=== PATIENT | female | born 1995 | race Caucasian/White ===

== ENCOUNTER 2021-09-24 23:13 | Emergency (ER) | payer SELFPAY ==
[2021-09-24 23:21] VITALS: BP 130/94; PULSE 76; RESP 18; TEMP 36.4; O2SAT 98
--- NOTE | 2021-09-24 23:31 | ED.GENADULT ---
HPI - General Adult General Chief complaint: Unspecified Stated complaint: Staple Removal Time Seen by Provider: 09/24/21 23:17 Source: patient and RN notes reviewed Mode of arrival: ambulatory Limitations: no limitations History of Present Illness complaint: delma of healed Caeasarean section wound for removal. Onset (ago): week(s) (8) Location: abdomen Radiation: non-radiation Severity: mild Severity scale (1-10): 1 Quality: dull Pain Consistency: constant Relieving factors: none Exacerbating factors: none Associated symptoms: denies other symptoms Treatments prior to arrival: none Related Data Home Medications Medication Instructions Recorded Confirmed No Home Medications 09/24/21 09/24/21 Allergies Allergy/AdvReac Type Severity Reaction Status Date / Time oxacillin Allergy Unknown Verified 09/24/21 23:34 mirapenum Allergy Unknown Uncoded 09/24/21 23:34 Review of Systems Review of Systems: All systems reviewed & are unremarkable except as noted in HPI and below Constitutional: Constitutional: Reports no additional constitutional complaints Eyes: Eyes: Reports no additional eye complaints ENT: Reports system reviewed and no additional complaints, except as documented Cardiovascular: Cardiovascular: Reports no additional cardiovascular complaints Respiratory: Respiratory: Reports no additional respiratory complaints Gastrointestinal: Gastrointestinal: Reports no additional gastrointestinal complaints Genitourinary: Genitourinary: Reports no additional female genitourinary complaints Musculoskeletal: Musculoskeletal: Reports no additional musculoskeletal complaints Integumentary/Breasts: Skin/Breast: Reports system reviewed and no additional complaints, except as docu Neurologic: Reports system reviewed and no additional complaints, except as documented Psychiatric: Psychiatric: Reports no additional psychiatric complaints Endocrine: Endocrine: Reports no additional endocrine complaints Hematologic/Lymphatic: Hematologic/Lymphatic: Reports no additional hematologic/lymphatic complaints Allergic/Immunologic: Allergic/Immunologic: Reports no additional allergic/immunologic complaints PMFSH Past Medical History Medical History Healing wound Exam Const: General: healthy appearing and no acute distress Nutritional Appearance: well nourished Orientation/consciousness: patient oriented x3 Limitations: no limitations HENMT: Head: normal to inspection Ears: external ears normal, TM's normal bilaterally and EAC's normal General nose exam: Normal external nose present and Normal nares present Face and sinus: normal facial exam and sinuses nontender Mouth: Yes Normal oral and palatal mucosa present and Yes moist mucous membranes Teeth and gingiva: dentition normal Throat: posterior oropharynx normal Eyes: Conjunctivae: conjunctivae normal Pupils: Equal, round and reactive pupils present EOM: EOMs intact bilaterally Neck: Neck: normal visual inspection, no lymphadenopathy and no meningeal signs Chest: Chest palpation & inspection: normal inspection of the chest Resp: Effort & Inspection: normal respiratory effort Auscultation: clear to auscultation bilaterally Cardio: Rate: regular rate Rhythm: regular rhythm GI: GI Palp: Yes Soft to palpation and No Tenderness to palpation present (GI) Auscultation: normal bowel sounds : General: Yes bladder normal to palpation and Yes no CVA tenderness Bimanual exam- vagina & uterus: bladder normal to palpation Back/Spine/Pelvis: Back: no CVA tenderness Skin: General skin exam: normal color Rashes: no rashes Wounds: no wounds Neuro: General: patient oriented x3, moves all extremities, no meningeal signs, no focal motor deficits and CN's II-XI intact bilaterally Cranial nerves: Yes Equal, round and reactive pupils present and Yes Nystagmus not present Speech: normal speech Gait
--- NOTE | 2021-09-24 23:32 | PC.NURSE ---
4 delma removed in whole condition, bandaids placed over site. no signs of infection
[2021-09-24] MEDS: ACETAMINOPHEN 325 MG TABLET 650 MG PO (23:39)
== END 2021-09-24 23:42 | disposition home or self-care (01) ==
PROVIDERS: Emergency Provider Emergency Medicine
DX: Z48.02 Encounter for removal of sutures (principal)
CPT/HCPCS: 99282; A9270

== ENCOUNTER 2021-10-07 06:11 | Emergency (ER) | payer OTHER, SELFPAY ==
--- NOTE | ~2021-10-07 | XR_ITS ---
XR sacrum coccyx min 2V DATE: 10/07/2021 07:02 INDICATION: Fall. Patient landed on tailbone. TECHNIQUE: AP, angled AP and lateral views of sacrum and coccyx COMPARISON: None FINDINGS: The pubic symphysis and sacroiliac joints are intact. No sacral or coccygeal fracture or john ne destruction is noted. Hip joint spaces appear symmetric and preserved. IMPRESSION: Negative Reviewed, dictated and finalized at location A. IMPRESSION: Negative
[2021-10-07 06:28] VITALS: BP 116/73; PULSE 64; RESP 18; TEMP 36.2; O2SAT 95
--- NOTE | 2021-10-07 06:36 | ED.FALL ---
HPI - Fall General Chief Complaint: Fall Stated Complaint: LOWER BACK/ L LEG PAIN Time Seen by Provider: 10/07/21 06:32 History of Present Illness HPI Narrative: 26-year-old female patient is in the ER with complaints of pain in the tailbone area after she slipped a few steps and landed on the carpet flat on her buttocks approximately 2 hours ago while she was carrying a basket of laundry. She localizes the pain to the left buttock and lower back area and states that the walking makes it worse. There is no associated numbness or tingling of the leg. And she denies any other injuries. Apparently she has had a prior history of coccygeal fracture. Patient is 4 months and has not had a period and is not sure if she might be again. She is not currently nursing her child. She is 1. Related Data Home Medications Medication Instructions Recorded Confirmed No Home Medications 09/24/21 10/07/21 Allergies Allergy/AdvReac Type Severity Reaction Status Date / Time oxacillin Allergy Unknown Verified 09/24/21 23:34 mirapenum Allergy Unknown Uncoded 09/24/21 23:34 Review of Systems Review of Systems: All systems reviewed & are unremarkable except as noted in HPI and below PMFSH Past Medical History Medical History Healing wound Exam Const: General: healthy appearing, no acute distress and alert Nutritional Appearance: well nourished and thin Orientation/consciousness: patient oriented x3 Limitations: no limitations HENMT: Head: normal to inspection Ears: external ears normal General nose exam: Normal external nose present Face and sinus: normal facial exam Eyes: Pupils: Equal, round and reactive pupils present EOM: EOMs intact bilaterally Neck: Neck: normal visual inspection Chest: Chest palpation & inspection: normal inspection of the chest Resp: Effort & Inspection: normal respiratory effort Auscultation: clear to auscultation bilaterally Cardio: Rate: regular rate Rhythm: regular rhythm GI: Auscultation: normal bowel sounds : General: Yes bladder normal to palpation Back/Spine/Pelvis: Back: no CVA tenderness Other: The curvature of the spine is normal. There is no obvious bruising or contusions noted to the back or the buttock area. Patient does have point tenderness over the sacrococcygeal area. There is no crepitus. Skin: General skin exam: normal color Rashes: no rashes Wounds: no wounds Neuro: General: patient oriented x3, moves all extremities, no meningeal signs, no focal motor deficits and CN's II-XI intact bilaterally Cranial nerves: Yes Nystagmus not present Speech: normal speech Gait exam (Neuro): Normal gait present Extrem: General: normal to inspection Other: Patient has a good range of motion of lower extremities bilaterally. Psych: Mental Status: mental status grossly normal Affect: normal affect Attitude: cooperative Course Course Emergency Course: Urine test is negative. Patient has been given Tylenol. x-ray of the sacrococcyx is reported negative by the radiologist . patient is aware. She will be discharged home. Vital Signs Vital signs: Vital Signs Temperature 36.2 C L 10/07/21 06:28 Pulse Rate 64 10/07/21 06:28 Respiratory Rate 18 10/07/21 06:28 Blood Pressure 116/73 10/07/21 06:28 Pulse Oximetry 95 10/07/21 06:28 Oxygen Delivery Room Air 10/07/21 06:28 Temperature 36.2 C L 10/07/21 06:28 Pulse Rate 64 10/07/21 06:28 Respiratory Rate 18 10/07/21 06:28 Blood Pressure 116/73 10/07/21 06:28 Pulse Oximetry 95 10/07/21 06:28 Oxygen Delivery Room Air 10/07/21 06:28 Discharge Plan Discharge Clinical Impression: Coccygeal contusion Patient Disposition: Home, Self-Care Condition: Stable Instructions: Contusion in Adults (ED) Additional Instructions: Use a donut cushion or a soft cushion to sit on for comf
[2021-10-07 06:41] LABS: Pregnancy On Board Control Positive; Urine Pregnancy Test Negative
[2021-10-07] MEDS: ACETAMINOPHEN 325 MG TABLET 650 MG PO (06:42)
[2021-10-07 07:23] VITALS: BP 116/77; PULSE 62; RESP 18; O2SAT 97
== END 2021-10-07 07:31 | disposition home or self-care (01) ==
PROVIDERS: Emergency Provider Emergency Medicine
DX: S30.0XXA Contusion of lower back and pelvis, initial encounter (principal); W10.9XXA Fall (on) (from) unspecified stairs and steps, initial encounter
CPT/HCPCS: 72220; 81025; 99283; A9270

== ENCOUNTER 2022-01-07 02:01 | Emergency (ER) | payer OTHER, SELFPAY ==
[2022-01-07 02:01] VITALS: BP 112/88; PULSE 120; PULSE 132; RESP 18; TEMP 36.4; O2SAT 100
--- NOTE | 2022-01-07 02:22 | ED.SKABFB ---
HPI - Skin/Abscess/Foreign Bdy General Chief complaint: Skin/Abscess/Foreign Body Stated complaint: arm pain Time Seen by Provider: 01/07/22 02:05 Source: patient and RN notes reviewed Mode of arrival: ambulatory Limitations: no limitations History of Present Illness HPI narrative: right axillary abscess 3/4 cm diameter MD complaint: abscess/boil Onset (ago): day(s) (3) Tetanus up to date: unsure Location: RUE (inner proximal arm) Severity: moderate Severity scale (1-10): 4 Quality: aching and dull Pain Consistency: constant Relieving factors: none Exacerbating factors: none Associated symptoms: denies other symptoms Treatments prior to arrival: none Related Data Allergies Allergy/AdvReac Type Severity Reaction Status Date / Time oxacillin Allergy Unknown Verified 01/07/22 02:18 mirapenum Allergy Unknown Uncoded 09/24/21 23:34 Review of Systems Review of Systems: All systems reviewed & are unremarkable except as noted in HPI and below Constitutional: Constitutional: Reports no additional constitutional complaints Eyes: Eyes: Reports no additional eye complaints ENT: Reports system reviewed and no additional complaints, except as documented Cardiovascular: Cardiovascular: Reports no additional cardiovascular complaints Respiratory: Respiratory: Reports no additional respiratory complaints Gastrointestinal: Gastrointestinal: Reports no additional gastrointestinal complaints Genitourinary: Genitourinary: Reports no additional female genitourinary complaints Musculoskeletal: Comments: right axillary abscess Integumentary/Breasts: Skin/Breast: Reports system reviewed and no additional complaints, except as docu Neurologic: Reports system reviewed and no additional complaints, except as documented Psychiatric: Psychiatric: Reports no additional psychiatric complaints Endocrine: Endocrine: Reports no additional endocrine complaints Hematologic/Lymphatic: Hematologic/Lymphatic: Reports no additional hematologic/lymphatic complaints Allergic/Immunologic: Allergic/Immunologic: Reports no additional allergic/immunologic complaints PMFSH Past Medical History Medical History (Updated 01/07/22 @ 02:40 by Kyle Patel MD) Healing wound Right axillary hidradenitis Exam Const: General: no acute distress Nutritional Appearance: well nourished Orientation/consciousness: patient oriented x3 Limitations: no limitations HENMT: Head: normal to inspection Ears: external ears normal, TM's normal bilaterally and EAC's normal General nose exam: Normal external nose present and Normal nares present Face and sinus: normal facial exam and sinuses nontender Mouth: Yes Normal oral and palatal mucosa present and Yes moist mucous membranes Teeth and gingiva: dentition normal Throat: posterior oropharynx normal Eyes: Conjunctivae: conjunctivae normal Pupils: Equal, round and reactive pupils present EOM: EOMs intact bilaterally Neck: Neck: normal visual inspection, no lymphadenopathy and no meningeal signs Chest: Chest palpation & inspection: normal inspection of the chest Resp: Effort & Inspection: normal respiratory effort Auscultation: clear to auscultation bilaterally Cardio: Rate: regular rate Rhythm: regular rhythm GI: GI Palp: Yes Soft to palpation and No Tenderness to palpation present (GI) Auscultation: normal bowel sounds : General: Yes bladder normal to palpation and Yes no CVA tenderness Bimanual exam- vagina & uterus: bladder normal to palpation Back/Spine/Pelvis: Back: no CVA tenderness Skin: General skin exam: normal color Rashes: no rashes Wounds: no wounds Other: 3/4 cm diameter soft reddish swelling of right upper inner arm, tender Neuro: General: patient oriented x3, moves all extremities, no meningeal signs, no focal motor deficits and CN's II-XI intact bilaterally Cranial nerves: Yes Equal, round and reactive pupils present and Yes Nystagmus not present Speech: normal spe
[2022-01-07] MEDS: IBUPROFEN 400 MG TABLET 800 MG PO (02:26)
--- NOTE | 2022-01-07 03:20 | PC.NURSE ---
ERP and RN go into pt's room to attempt to perform an I&D. Pt became extremely anxious and states she could not go through with the procedure. ERP ordered 0.5mg Lorazepam PO to try and calm pt before the procedure. Pt states that the only way she could do the procedure is completely knocked out which ERP refused. RN attempted to educated on the importance and need for the procedure but pt still refused. Pt then refused any treatment that involved an injection including an IV, NSS IV bolus, T-Dap, and Rocephin IM injection. RN performed education, but pt still refused. Pt states all she wants is an antibiotic prescription sent to her pharmacy. ERP notified. ERP orders for abscess to be cleaned, apply a sterile dressing to the site, and that a prescription will be sent for her antibiotics.
[2022-01-07 03:46] VITALS: BP 114/81; PULSE 104; RESP 16; TEMP 36.4; O2SAT 100
== END 2022-01-07 03:52 | disposition home or self-care (01) ==
PROVIDERS: Emergency Provider Emergency Medicine
DX: L02.411 Cutaneous abscess of right axilla (principal)
CPT/HCPCS: 99283; A9270; J0696

== ENCOUNTER 2022-01-07 09:13 | Emergency (ER) | payer OTHER, SELFPAY ==
[2022-01-07] VITALS (18 sets, daily range): BP systolic 113–159; BP diastolic 65–99; PULSE 128–165; RESP 14–33; TEMP 36.1; O2SAT 98–100
--- NOTE | 2022-01-07 09:22 | ED.GENADULT ---
HPI - General Adult General Chief complaint: Unspecified Stated complaint: POSSIBLE METH OVERDOSE Time Seen by Provider: 01/07/22 09:18 Source: patient Mode of arrival: ambulatory History of Present Illness HPI narrative: 26-year-old female with a history of psoriasis, methamphetamine abuse, right axillary abscess for which she presented to the ER this morning we presents to the ER now with -- tremulousness. The patient drank the water through which the amphetamine is being inhaled 2 hours ago. -- Profuse sweating -- anxiety the patient is noted to be hypertensive with a blood pressure of 159/99. Onset (ago): minute(s) ( 2 hours ago) Relieving factors: none Exacerbating factors: none Associated symptoms: confusion, diaphoresis and other ( tremulous) Treatments prior to arrival: none Related Data Allergies Allergy/AdvReac Type Severity Reaction Status Date / Time oxacillin Allergy Unknown Verified 01/07/22 09:28 mirapenum Allergy Unknown Uncoded 01/07/22 09:28 Review of Systems Review of Systems: All systems reviewed & are unremarkable except as noted in HPI and below Constitutional: Constitutional: Reports as per HPI and Reports no additional constitutional complaints Eyes: Eyes: Reports as per HPI and Reports no additional eye complaints ENT: Reports system reviewed and no additional complaints, except as documented and Reports as per HPI Cardiovascular: Cardiovascular: Reports as per HPI and Reports diaphoresis Respiratory: Respiratory: Reports as per HPI and Reports no additional respiratory complaints Gastrointestinal: Gastrointestinal: Reports as per HPI and Reports no additional gastrointestinal complaints Genitourinary: Genitourinary: Reports no additional female genitourinary complaints Musculoskeletal: Musculoskeletal: Reports no additional musculoskeletal complaints Integumentary/Breasts: Comments: right axillary abscess measuring around 4 cm. Neurologic: Reports system reviewed and no additional complaints, except as documented, Reports behavioral changes, Reports confusion and Reports tremor(s) Psychiatric: Psychiatric: Reports anxiety Endocrine: Endocrine: Reports no additional endocrine complaints and Reports as per HPI Hematologic/Lymphatic: Hematologic/Lymphatic: Reports no additional hematologic/lymphatic complaints and Reports as per HPI Allergic/Immunologic: Allergic/Immunologic: Reports no additional allergic/immunologic complaints and Reports as per HPI PMF Past Medical History Medical History Healing wound Right axillary hidradenitis Exam Const: General: cooperative, in distress, anxious and ill appearing Nutritional Appearance: cachectic Orientation/consciousness: oriented to person, oriented to place and oriented to time Limitations: altered mental status HENMT: Head: normal to inspection Ears: hearing grossly normal bilaterally General nose exam: Normal external nose present Face and sinus: normal facial exam and sinuses nontender Mouth: Yes Normal oral and palatal mucosa present Throat: posterior oropharynx normal Eyes: General: appearance normal, both eyes and all related structures Neck: Neck: normal visual inspection, full ROM, no lymphadenopathy and no meningeal signs Thyroid: thyroid normal Chest: Chest palpation & inspection: normal inspection of the chest Other: 4 cm axillary abscess which is fluctuant. Resp: Effort & Inspection: normal respiratory effort and prolonged expiratory phase Cardio: Palpation: normal PMI Rate: tachycardic Rhythm: regular rhythm Heart sounds: S1 normal heart sound present and S2 normal heart sound present GI: Inspection: normal to inspection : General: Yes no CVA tenderness Skin: General skin exam: no rashes or lesions noted ( Psoriatic rash-bilateral lateral malleoli with minimal rash on elbows) Neuro: General: oriented to person, oriented to place an
--- NOTE | 2022-01-07 09:34 | ECG_ITS ---
Measurements Intervals [place] Rate: 153 P: 79 [place]: 135 QRS: 48 QRSD: 86 T: 79 QT: 309 QTc: 494 Interpretive Statements SINUS TACHYCARDIA DELAYED PRECORDIAL R/S TRANSITION NONSPECIFIC ST & T-WAVE ABNORMALITY- DIFFUSE LEADS BASELINE ARTIFACT- I, II, III, AVR, AVL, AVF, V1-V6 ABNORMAL ECG NO PREVIOUS ECG AVAILABLE FOR COMPARISON Electronically Signed On 01-07-2022 14:40:04 CDT by Holland Landeros D.O.
[2022-01-07 09:55] LABS: Basophils Absolute Auto 0.03 K/mm3 (0.00-0.10); Basophils Percent Auto 0.2 % (0.0-1.0); Eosinophils Absolute Auto 0.09 K/mm3 (0.02-0.50); Eosinophils Percent Auto 0.6 % (1.0-6.0); Hematocrit 40.6 % (35.0-49.0); Hemoglobin 13.1 g/dL (12.0-15.0); Immature Granulocyte Absolute 0.04 K/mm3 (0.00-0.00); Immature Granulocyte Percent A 0.3 % (0.0-0.0); Lymphocytes Absolute Auto 1.08 K/mm3 (1.10-4.50); Lymphocytes Percent Auto 7.7 % (18.0-42.0); Mean Corpuscular HGB Conc 32.3 g/dL (32.0-36.0); Mean Corpuscular Hemoglobin 26.2 pg (27.0-31.0); Mean Corpuscular Volume 81.2 fL (78.0-102.0); Mean Platelet Volume 9.4 fl (9.2-11.8); Monocytes Absolute Auto 0.55 K/mm3 (0.10-0.90); Monocytes Percent Auto 3.9 % (2.0-11.0); Neutrophils Absolute Auto 12.2 K/mm3 (1.7-7.2); Neutrophils Percent Auto 87.3 % (50.0-70.0); Platelet Count Result 409 K/mm3 (150-420); Red Cell Distribution Width 14.6 % (11.6-14.4)
[2022-01-07] MEDS: LORazepam INJ (*CRX) 2 MG/ML VIAL IV PUSH (10:00)
[2022-01-07] MEDS: LACTATED RINGERS 1,000 ML 999 ML IV CONT (10:00)
[2022-01-07 10:11] LABS: Alanine Aminotransferase 14 U/L (14-59); Albumin Level 3.6 g/dL (3.4-5.0); Alkaline Phosphatase 112 U/L (46-116); Anion Gap 9 mmol/L (8-16); Aspartate Amino Transferase 13 U/L (15-37); Bilirubin,Total 0.3 mg/dL (0.00-1.00); Blood Urea Nitrogen 9 mg/dL (7-18); Calcium 9.4 mg/dL (8.5-10.1); Carbon Dioxide 27 mmol/L (21-32); Chloride 102 mmol/L (98-108); Estimated CRCL calculation 65 ml/min; Estimated Glomerular Filt Rate > 60; Glucose 90 mg/dL (70-99); Osmolality Calculated 284 mOsm/kg (285-295); Potassium 3.4 mmol/L (3.5-5.1); Sodium 138 mmol/L (136-145); Total Protein 8.2 g/dL (6.4-8.2)
[2022-01-07 10:22] LABS: Thyroid Stimulating Hormone 1.26 uIU/mL (0.36-3.74); Troponin I 8.9 ng/L (0.00-60.4)
[2022-01-07] MEDS: diazePAM INJ (*CRX) 10 MG/2 ML SYRINGE 5 MG IV PUSH ×2 (10:41→11:44)
[2022-01-07] MEDS: LACTATED RINGERS 1,000 ML 150 ML IV CONT (10:41)
--- NOTE | 2022-01-07 10:44 | PC.NURSE ---
PT UP TO RR WITH SLOW, STEADY, SKAKING GAIT. PT RETURNS TO EXAM ROOM, REPORTING NO URINE OUTPUT X 2 ATTEMPTS AT THIS TIME. FATHER REMAINS AT BEDSIDE. PT GIVEN IV MEDICATION ORDERED WITHOUT DIFFICULTY. PT CONTINUES TO BE DIAPHORETIC, ICE PACKS WERE PROVIDED, ANXIOUS, AND UNABLE TO SIT STILL. WILL CONTINUE TO MONITOR.
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
[2022-01-07 11:08] LABS: Add Urine Microscopic? YES; Appearance Urine Clear (Clear); Bilirubin Urine Negative (Negative); Blood Urine Negative (Negative); Color Urine Yellow (Yellow); Glucose Urine UA Negative (Negative); Ketones Urine Trace (Negative); Leukocyte Esterase Ur Negative (Negative); Nitrate Urine Negative (Negative); Protein Urine Trace (Negative); Specific Grav Ur 1.025 (1.010-1.020); Urobilinogen Urine 0.2 mg/dL (0.2-1.0)
[2022-01-07 11:15] LABS: Amphetamine Screen Urine Positive (Negative); Bacteria Urine Trace /hpf; Barbiturate Screen Urine Negative (Negative); Benzodiazepines Screen Urine Negative (Negative); Cannabinoid Screen Urine Negative (Negative); Cocaine Screen Urine Negative (Negative); Methadone Screen Urine Negative (Negative); Mucus Urine Moderate /lpf; Opiate Screen Urine Negative (Negative); Phencyclidine Screen Urine Negative (Negative); RBC Urine None seen /hpf (0-2); Squamous Epithelial Cell Urine Few /hpf (Few); WBC Urine 0-3 /hpf (0-3)
[2022-01-07 11:30] LABS: Pregnancy On Board Control Positive; Urine Pregnancy Test Negative
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
--- NOTE | 2022-01-07 11:48 | PC.NURSE ---
PT SKIN IS DRY AT THIS TIME, PT IS MORE ALERT AND LESS SHAKY. FATHER HAS LEFT TO [facility] RX FROM PHARMACY AT THIS TIME. PT IS AWAITING ERP DECISION AT THIS TIME. WILL CONTINUE TO MONITOR.
--- NOTE | 2022-01-07 12:46 | PC.NURSE ---
PT IS ABLE TO AMBULATE WITH STEADY GAIT OUT OF ED. FATHER TO TRANSPORT.
== END 2022-01-07 12:40 | disposition home or self-care (01) ==
PROVIDERS: Emergency Provider Internal Medicine Critical Care Medicine
DX: F15.10 Other stimulant abuse, uncomplicated (principal); L02.411 Cutaneous abscess of right axilla
CPT/HCPCS: 36415; 80053; 80307; 81001; 81025; 84443; 84484; 85025; 93005; 96361; 96374; 96375; 96376; 99284; A9270; J0696; J2060; J3360; J7120

== ENCOUNTER 2022-05-18 21:08 | Emergency (ER) | payer OTHER, SELFPAY ==
[2022-05-18 21:10] VITALS: BP 101/80; PULSE 104; RESP 16; TEMP 36.7; O2SAT 99
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
== END 2022-05-18 21:51 | disposition home or self-care (01) ==
PROVIDERS: Emergency Provider Emergency Medicine
DX: S70.12XA Contusion of left thigh, initial encounter (principal); S40.012A Contusion of left shoulder, initial encounter; S10.91XA Abrasion of unspecified part of neck, initial encounter; S60.222A Contusion of left hand, initial encounter; Y04.2XXA Assault by strike against or bumped into by another person, initial encounter
CPT/HCPCS: 99282

== ENCOUNTER 2023-03-19 19:46 | Emergency (ER) | payer OTHER, SELFPAY ==
[2023-03-19 19:50] VITALS: BP 128/91; PULSE 133; RESP 26; TEMP 36.1; O2SAT 97
--- NOTE | 2023-03-19 19:53 | ED.NAVMDI ---
HPI - Nausea/Vomiting/Diarrhea General Chief complaint: Nausea/Vomiting/Diarrhea Stated complaint: sz,n/v Time Seen by Provider: 03/19/23 19:53 Source: patient and RN notes reviewed Mode of arrival: ambulatory Limitations: no limitations History of Present Illness HPI Narrative: patient brought in by johannyienraz. They apparently had been trying to call 911 but did not get a response. Initially boyfrienraz came to the lead front end developer and said she needed to be carried in. Nurses when out to evaluate her she is alert and oriented x4 cording of the nurses. They could not force her to come in. Eventually patient agreed to be brought in by wheelchair. She had been having some vomiting at home. She apparently also had stopped her seizure medicine several days ago. Boyfriend states that she had had a couple seizures today. Then she began complaining of chest pain. On arrival she is tachycardic in the 130s. MD elicited complaint: nausea and vomiting Onset (ago): day(s) Description of vomiting: food contents Associated abdominal pain: No Exacerbating factors: none Relieving factors: none Associated symptoms: chest pain and anxiety Related Data Allergies Allergy/AdvReac Type Severity Reaction Status Date / Time meropenem Allergy Intermediate hives Verified 03/19/23 20:58 oxacillin Allergy Unknown Verified 03/19/23 20:58 mirapenum Allergy Unknown Uncoded 03/19/23 20:58 Review of Systems Review of Systems: All systems reviewed & are unremarkable except as noted in HPI and below Respiratory: Respiratory: Denies dyspnea PMFSH Past Medical History Medical History (Updated 03/20/23 @ 00:00 by Shahnaz Jacques) Healing wound Right axillary hidradenitis Seizure disorder Family History Family History (System 05/20/22 @ 11:46 by Carlyn Carranza) Other Hypertension Exam Const: General: no acute distress, alert and ill appearing acutely Nutritional Appearance: well nourished and thin Orientation/consciousness: patient oriented x3 Limitations: no limitations HENMT: Head: normal to inspection Ears: external ears normal Face/Nose/Sinus: Normal external nose present Face and sinus: normal facial exam Mouth: Yes moist mucous membranes Eyes: Conjunctivae: conjunctivae normal Cornea: corneas normal Pupils: Equal, round and reactive pupils present EOM: EOMs intact bilaterally Neck: Neck: normal visual inspection Chest: Chest palpation & inspection: tenderness sternum ( reproduces her chest pain) Resp: Effort & Inspection: normal respiratory effort Auscultation: clear to auscultation bilaterally Cardio: Rate: tachycardic Rhythm: regular rhythm GI: GI Palp: Yes Soft to palpation and No Tenderness to palpation present (GI) Auscultation: normal bowel sounds Back/Spine/Pelvis: Cervical Spine: cervical ROM normal Thoracic/Lumbar Spine: thoraco-lumbar ROM normal Skin: General skin exam: normal color Rashes: no rashes Neuro: General: patient oriented x3, moves all extremities, no focal motor deficits and CN's II-XI intact bilaterally Speech: normal speech Extrem: General: normal to inspection and no clubbing, cyanosis or edema Psych: Appearance: disheveled Speech and movement: Clear speech present Affect: Hostile affect present Attitude: Belligerent attititude/behavior present (at times) Course Course Emergency Course: Patient's heart rate came down from the 130s to 80s without any difficulty. She is given L of normal saline. This seems to have helped her heart rate. Patient given 500 mg of Keppra IV to help control her seizures until she can get her prescription filled for her Trileptal. She states this has worked well in the past. MDM - Nausea/Vomiting/Diarrhea Differential Diagnosis Differential diagnosis: Likely gastroenteritis and other ( See just order, drug abuse, electrolyte abnormality, anemia, UTI.) Discharge Plan Discharge Clinical Impression: Seizure disorder, Gastroenteritis, Methamphetamin
--- NOTE | 2023-03-19 19:55 | ECG_ITS ---
Measurements Intervals Simpson Rate: 131 P: 78 MA: 143 QRS: 28 QRSD: 85 T: 53 QT: 325 QTc: 481 Interpretive Statements SINUS TACHYCARDIA BORDERLINE ST-T WAVE ABNORMALITY- ANTEROLAT/INF LEADS ABNORMAL ECG COMPARED TO ECG 01/07/2022 09:40:15 HEART RATE HAS DECREASED Electronically Signed On 03-20-2023 8:44:20 [employer] by Holland Landeros D.O.
[2023-03-19 20:10] VITALS: BP 122/78; PULSE 117; RESP 6; O2SAT 92
[2023-03-19 20:14] LABS: Basophils Absolute Auto 0.06 K/mm3 (0.00-0.10); Basophils Percent Auto 0.6 % (0.0-1.0); Eosinophils Absolute Auto 0.89 K/mm3 (0.02-0.50); Eosinophils Percent Auto 8.8 % (1.0-6.0); Hematocrit 43.5 % (35.0-49.0); Hemoglobin 14.3 g/dL (12.0-15.0); Immature Granulocyte Absolute 0.06 K/mm3 (0.00-0.00); Immature Granulocyte Percent A 0.6 % (0.0-0.0); Lymphocytes Absolute Auto 3.35 K/mm3 (1.10-4.50); Lymphocytes Percent Auto 33.1 % (18.0-42.0); Mean Corpuscular HGB Conc 32.9 g/dL (32.0-36.0); Mean Corpuscular Hemoglobin 29.1 pg (27.0-31.0); Mean Corpuscular Volume 88.6 fL (78.0-102.0); Monocytes Absolute Auto 0.43 K/mm3 (0.10-0.90); Monocytes Percent Auto 4.3 % (2.0-11.0); Neutrophils Absolute Auto 5.3 K/mm3 (1.7-7.2); Neutrophils Percent Auto 52.6 % (50.0-70.0); Platelet Count Result 322 K/mm3 (150-420); Red Blood Count 4.91 M/mm3 (4.20-5.40); Red Cell Distribution Width 12.6 % (11.6-14.4); White Blood Count 10.1 K/mm3 (4.8-10.8)
[2023-03-19] MEDS: NALOXONE HCL INJ 2 MG/2 ML AMP IV PUSH (20:19)
[2023-03-19 20:20] VITALS: BP 116/84; PULSE 74; RESP 18; O2SAT 100
[2023-03-19] MEDS: SODIUM CHLORIDE 0.9% IV 1,000 ML 999 ML IV CONT (20:29)
[2023-03-19 20:34] LABS: Alanine Aminotransferase 19 U/L (14-59); Albumin Level 3.4 g/dL (3.4-5.0); Alkaline Phosphatase 71 U/L (46-116); Anion Gap 9 mmol/L (8-16); Aspartate Amino Transferase 20 U/L (15-37); Bilirubin,Total 0.3 mg/dL (0.00-1.00); Blood Urea Nitrogen 23 mg/dL (7-18); Calcium 8.7 mg/dL (8.5-10.1); Carbon Dioxide 26 mmol/L (21-32); Chloride 103 mmol/L (98-108); Estimated Glomerular Filt Rate > 60; Glucose 149 mg/dL (70-99); Osmolality Calculated 292 mOsm/kg (285-295); Potassium 3.6 mmol/L (3.5-5.1); Sodium 138 mmol/L (136-145); Total Protein 7.2 g/dL (6.4-8.2)
[2023-03-19 20:35] LABS: CRP < 0.5 mg/dL (0.0-0.9); Magnesium 1.8 mg/dL (1.8-2.4); Troponin I < 4.0 ng/L (0.00-60.4)
[2023-03-19 20:43] LABS: Lactic Acid Reflex 2.3 mmol/L (0.4-2.0)
[2023-03-19 21:09] VITALS: BP 123/84; PULSE 94; RESP 20; O2SAT 100
[2023-03-19] MEDS: levETIRAcetam 500MG/NACL 100ML 500 MG/100 ML BAG 400 MG IVPB (21:44)
[2023-03-19 21:52] VITALS: BP 116/88; PULSE 81; RESP 16; O2SAT 100
[2023-03-19 22:26] LABS: Appearance Urine Slightly Cloudy (Clear); Bilirubin Urine Negative (Negative); Blood Urine 3+ (Negative); Color Urine Light Yellow (Yellow); Glucose Urine UA Negative (Negative); Ketones Urine Negative (Negative); Leukocyte Esterase Ur Trace LEU/UL (Negative); Nitrate Urine Negative (Negative); Protein Urine Negative (Negative); Specific Grav Ur 1.025 (1.010-1.020); Urobilinogen Urine 0.2 mg/dL (0.2-1.0)
[2023-03-19 22:31] LABS: Amphetamine Screen Urine Positive (Negative); Benzodiazepines Screen Urine Negative (Negative); Cannabinoid Screen Urine Positive (Negative); Opiate Screen Urine Negative (Negative); Phencyclidine Screen Urine Negative (Negative)
[2023-03-19 22:32] LABS: Add Urine Microscopic? YES
[2023-03-19 22:33] LABS: Amorphous Sediment Urine Moderate; Bacteria Urine 1+ /hpf; Squamous Epithelial Cell Urine Few /hpf (Few)
[2023-03-19 22:43] LABS: Barbiturate Screen Urine Negative (Negative); Cocaine Screen Urine Negative (Negative); Methadone Screen Urine Negative (Negative)
[2023-03-19 23:04] VITALS: BP 127/71; PULSE 88; RESP 16; O2SAT 99
[2023-03-19 23:11] LABS: Reflex Lactic Acid Yes or No Add Lactic
== END 2023-03-19 23:08 | disposition home or self-care (01) ==
PROVIDERS: Emergency Provider Emergency Medicine
DX: G40.909 Epilepsy, unspecified, not intractable, without status epilepticus (principal); K52.9 Noninfective gastroenteritis and colitis, unspecified; F15.10 Other stimulant abuse, uncomplicated
CPT/HCPCS: 36415; 80053; 80307; 81001; 83605; 83735; 84484; 85025; 86140; 93005; 96361; 96365; 96375; 99284; J1953; J2310; J7030

== ENCOUNTER 2023-12-02 08:04 | Emergency (ER) | payer OTHER, SELFPAY ==
[2023-12-02 08:08] VITALS: BP 106/86; PULSE 96; RESP 18; TEMP 36.7; O2SAT 97
--- NOTE | 2023-12-02 08:09 | ED.ALLEREA ---
HPI - Allergic Reaction General Chief complaint: Eye Problems Stated complaint: eye History of Present Illness HPI narrative: Pt presents with redness and itching of right lower eyelid for a couple of days. Pt denies new soaps, medicines, or detergents or outdoor exposure. Pt says she had head lice recently and got rid of them by putting heredia on hair. Pt denies visual issues or eye problems. Pt admits to regular meth use. Related Data Allergies Allergy/AdvReac Type Severity Reaction Status Date / Time meropenem Allergy Intermediate hives Verified 03/19/23 20:58 oxacillin Allergy Unknown Verified 03/19/23 20:58 mirapenum Allergy Unknown Uncoded 03/19/23 20:58 Review of Systems Review of Systems: All systems reviewed & are unremarkable except as noted in HPI and below PMFSH Past Medical History Medical History (Updated 12/02/23 @ 08:15 by Eitan Carlos III, DO) Healing wound Right axillary hidradenitis Seizure disorder Family History Family History (System 05/20/22 @ 11:46 by Carlyn Carranza) Other Hypertension Exam Const: General: cooperative, healthy appearing and no acute distress Limitations: no limitations HENMT: Head: normal to inspection Eyes: Other: right lowe lid slightly erytematous and swollen no eye involvement Neck: Neck: normal visual inspection Skin: Rashes: rashes noted (mild erythem and swelling right lower eyelid) Course Vital Signs Vital signs: Vital Signs Temperature 98.1 F 12/02/23 08:08 Pulse Rate 96 12/02/23 08:08 Respiratory Rate 18 12/02/23 08:08 Blood Pressure 106/86 12/02/23 08:08 Pulse Oximetry 97 12/02/23 08:08 Oxygen Delivery Room Air 12/02/23 08:08 Temperature 98.1 F 12/02/23 08:08 Pulse Rate 96 12/02/23 08:08 Respiratory Rate 18 12/02/23 08:08 Blood Pressure 106/86 12/02/23 08:08 Pulse Oximetry 97 12/02/23 08:08 Oxygen Delivery Room Air 12/02/23 08:08 MDM - Allergic Reaction MDM Narrative Medical decision making narrative: appears to be some type of contact dermatitis to skin right lower eeyelid. will treat with prednisone Discharge Plan Discharge Clinical Impression: Contact dermatitis Patient Disposition: Home, Self-Care Condition: Stable Instructions: Antibiotic Form, Contact Dermatitis (DC) Prescriptions: New prednisone 50 mg tablet 50 mg PO DAILY Qty: 5 0RF No Action oxcarbazepine [Trileptal] 300 mg tablet 300 mg PO BID Qty: 20 0RF oxcarbazepine [Trileptal] 150 mg tablet 150 mg PO BID Qty: 20 0RF Follow-up/Referrals: UNKNOWN,DOCTOR [Primary Care Provider] -
== END 2023-12-02 08:25 | disposition home or self-care (01) ==
LOC: CHSED 08:23
PROVIDERS: Emergency Provider Emergency Medicine
DX: L25.9 Unspecified contact dermatitis, unspecified cause (principal)
CPT/HCPCS: 99283

== ENCOUNTER 2024-02-16 14:04 | Emergency (ER) | payer OTHER, SELFPAY ==
--- NOTE | ~2024-02-16 | CT_ITS ---
EXAMINATION: CT orbit BI w con DATE: 02/16/2024 15:54 INDICATION: Left periorbital swelling extending into the cheek and forehead. TECHNIQUE: Computed tomography (CT) of the orbits was performed with 75 mL Omnipaque-350 intravenous contrast. Sagittal and coronal reconstructions were performed. Automated exposure control and iterati ve reconstruction technique were employed. The dose-length product was 241.66 mGy-cm. COMPARISON: None FINDINGS: There is prominent left orbital preseptal edematous soft tissue swelling which extends into the left fore head, bridge of the nose and left malar region. There is some hyperemia of the subcutaneous vess els in this region consistent with cellulitis. No evident organized abscess. Orbits are otherwise nor mal with no post septal inflammatory stranding. No maxillofacial fractures or cortical erosions to lopez ggest osteomyelitis. There is prominent mucosal thickening the left sphenoid and right maxillary sinu ses with additional mild mucosal thickening in the left maxillary and bilateral ethmoid sinuses and b ilateral frontoethmoidal recesses. Change of prior sinus surgery with likely bilateral antral window procedures and additional window procedures at the floors of the bilateral anterior sphenoid sinuses. The right frontoethmoidal recesses occluded. Partially visualized ventricular shunt with distal tip in the frontal horn of the right lateral ventricle. Region of encephalomalacia in the right middle ce rebral artery vascular distribution consistent with prior infarct. IMPRESSION: 1. Prominent left periorbital preseptal soft tissue swelling extending across the bridge of the nose, to the left frontal scalp and left malar regions consistent with cellulitis. No organized abscess. 2. Likely chronic sinus disease with postoperative changes of the paranasal sinuses. 3. 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 See separate head CT report also from 02/16/2024 for further detail. Reviewed, dictated and finalized at location A. IMPRESSION: 1. Prominent left periorbital preseptal soft tissue swelling extending across t he bridge of the nose, to the left frontal scalp and left malar regions consist ent with cellulitis. No organized abscess. 2. Likely chronic sinus disease with postoperative changes of the paranasal sin uses. 3. 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 See separ ate head CT report also from 02/16/2024 for further detail.
--- NOTE | ~2024-02-16 | CT_ITS ---
EXAMINATION: CT brain wo con DATE: 02/16/2024 15:51 INDICATION: Left facial abscess. TECHNIQUE: Computed tomography (CT) of the head was performed without intravenous contrast. Sagittal and coronal reconstructions were performed. The mA was adjusted according to patient size. Iterative reconstruction technique was employed. The dose-length product was 529.67 mGy-cm. COMPARISON: head CT dated 08/02/2013 FINDINGS: Again seen are changes of chronic craniotomies the right frontal, right parieto-occipital regions and at the vertex. Unchanged right parietal ventricular shunt with distal tip at the anterior horn of th e right lateral ventricle. Visualized portion of the shunt catheter appear intact. Large region of en cephalomalacia involving a significant portion of the right temporal lobe, insula and occipital lobes and portions of the right basal ganglia in the right middle cerebral artery vascular distribution lopez ggesting sequela of old infarct. Additional smaller region of encephalomalacia in the right parietal lobe which could also be due to prior infarct, trauma or surgery. No acute intracranial hemorrhage, a cute infarction or abnormal extra axial fluid collection. There is ex vacuo dilation of the right lat eral ventricle. The remaining ventricles are normal. No mass/mass effect. Swelling of the left fronta l scalp. There is also prominent left preseptal soft tissue swelling at the left orbit which extends across the bridge of the nose. The orbits are otherwise normal with no post septal inflammatory stran ding. Prominent mucosal thickening the left sphenoid and visualized portion of the right maxillary s inus with additional mild mucosal thickening the right ethmoid sinus. Mastoid air cells and middle ea r cavities are clear. IMPRESSION: 1. Prominent left orbital preseptal soft tissue swelling with soft tissue swelling extending into the adjacent left frontal scalp and across the bridge of the nose which could be due to trauma or cellul itis. 2. Chronic postoperative changes along the calvarium with right-sided predominance and unchanged righ t parietal ventricular shunt with distal tip at the anterolateral of the right lateral ventricle. 3. Large region of chronic encephalomalacia in the right middle cerebral artery vascular distribution involving large portions of the right temporal occipital lobes, portions of the insula and right bas al ganglia likely sequela of chronic infarct associated expected dilation of the right lateral ventri sheldon. 4. Small region of encephalomalacia in the right parietal lobe most likely also related to chronic in farct with differential including trauma or surgery. 5. Prominent sinus disease. Reviewed, dictated and finalized at location A. IMPRESSION: 1. Prominent left orbital preseptal soft tissue swelling with soft tissue swell ing extending into the adjacent left frontal scalp and across the bridge of the nose which could be due to trauma or cellulitis. 2. Chronic postoperative changes along the calvarium with right-sided predomina nce and unchanged right parietal ventricular shunt with distal tip at the anter olateral of the right lateral ventricle. 3. Large region of chronic encephalomalacia in the right middle cerebral artery vascular distribution involving large portions of the right temporal occipital lobes, portions of the insula and right basal ganglia likely sequela of chroni c infarct associated expected dilation of the right lateral ventricle. 4. Small region of encephalomalacia in the right parietal lobe most likely also related to chronic infarct with differential including trauma or surgery. 5. Prominent sinus disease.
[2024-02-16 14:04] VITALS: BP 113/78; PULSE 92; RESP 20; TEMP 36.3; O2SAT 98
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
[2024-02-16 15:00] VITALS: BP 118/70; PULSE 78; RESP 16; TEMP 37.3; O2SAT 98
[2024-02-16 15:06] LABS: Basophils Absolute Auto 0.03 K/mm3 (0.00-0.10); Basophils Percent Auto 0.3 % (0.0-1.0); Eosinophils Absolute Auto 0.77 K/mm3 (0.02-0.50); Eosinophils Percent Auto 7.4 % (1.0-6.0); Hematocrit 41.1 % (35.0-49.0); Hemoglobin 13.3 g/dL (12.0-15.0); Immature Granulocyte Absolute 0.03 K/mm3 (0.00-0.00); Immature Granulocyte Percent A 0.3 % (0.0-0.0); Lymphocytes Absolute Auto 2.29 K/mm3 (1.10-4.50); Mean Corpuscular HGB Conc 32.4 g/dL (32-36); Mean Corpuscular Hemoglobin 27.4 pg (27.0-31.0); Mean Corpuscular Volume 84.6 fL (78.0-102.0); Mean Platelet Volume 9.2 fl (9.2-11.8); Monocytes Absolute Auto 0.97 K/mm3 (0.10-0.90); Monocytes Percent Auto 9.3 % (2.0-11.0); Neutrophils Absolute Auto 6.32 K/mm3 (1.70-7.20); Neutrophils Percent Auto 60.7 % (50.0-70.0); Platelet Count Result 249 K/mm3 (150-420); Red Blood Count 4.86 M/mm3 (4.20-5.40); Red Cell Distribution Width 13.7 % (11.6-14.4); White Blood Count 10.4 K/mm3 (4.8-10.8)
--- NOTE | 2024-02-16 15:11 | PC.NURSE ---
pt has iv medication infusing as ordered without difficulty. sig other at bedside. pt was awaiting blood cultures to be obtained prior to abx initiation. pt denies any needs or complaints. warm blanket provided. pt is texting on cell phone without distress. pt is waiting on results. will continue to monitor.
[2024-02-16 15:13] LABS: Pregnancy On Board Control Positive; Urine Pregnancy Test Negative
[2024-02-16 15:23] LABS: Alanine Aminotransferase 11 U/L (14-59); Albumin Level 3.4 g/dL (3.4-5.0); Alkaline Phosphatase 102 U/L (46-116); Anion Gap 9 mmol/L (4-12); Aspartate Amino Transferase 10 U/L (15-37); Bilirubin,Total 0.4 mg/dL (0.00-1.00); Blood Urea Nitrogen 6 mg/dL (7-18); Calcium 9.2 mg/dL (8.5-10.1); Carbon Dioxide 29 mmol/L (21-32); Chloride 100 mmol/L (98-108); Estimated CRCL calculation 88 ml/min; Estimated Glomerular Filt Rate > 60; Glucose 78 mg/dL (70-99); Osmolality Calculated 282 mOsm/kg (285-295); Potassium 3.9 mmol/L (3.5-5.1); Sodium 138 mmol/L (136-145); Total Protein 7.9 g/dL (6.4-8.2)
[2024-02-16 15:27] LABS: Lactic Acid Reflex 1.1 mmol/L (0.4-2.0)
--- NOTE | 2024-02-16 15:37 | PC.NURSE ---
pt in ct at this time. will continue to monitor.
[2024-02-16] MEDS: VANCOMYCIN 1,000 MG/NS 250 ML 1,000 MG/250 ML BAG 250 MG IVPB (15:57)
[2024-02-16 16:00] VITALS: BP 120/70; PULSE 72; RESP 18; TEMP 37.4; O2SAT 99
--- NOTE | 2024-02-16 16:00 | PC.NURSE ---
pt is lying on stretcher watching videos on cell phone without distress. no one is at bedside at this time. iv medications are infusing as ordered without difficulty. warm blanket provided. will continue to monitor.
[2024-02-16 16:27] LABS: MRSA (PCR) DETECTED (NOT DETECTE)
[2024-02-16 17:00] VITALS: BP 116/70; PULSE 72; RESP 18; TEMP 37.5; O2SAT 98
--- NOTE | 2024-02-16 17:01 | PC.NURSE ---
PT IS LYING ON STRETCHER IN EXAM ROOM AT THIS TIME. IV MEDICATION HAS COMPLETED INFUSING. PT IS AWAITING ERP DECISION. NAD NOTED. PT IS TEXTING ON CELL WITHOUT DIFFICULTY. DENIES ANY NEEDS OR COMPLAINTS. WILL CONTINUE TO MONITOR.
--- NOTE | 2024-02-16 18:02 | PC.NURSE ---
PT HAS BEEN ACCEPTED TO [facility] FOR TRANSFER, NOW PT AND SIG OTHER ARE WANTING TO LEAVE AND GO HOME FOR THE EVENING, THEN GO TO [facility] TOMORROW. ERP IS NOTIFIED AND IS AT BEDSIDE. SPEAKING WITH PT AND SIG OTHER, EXPLAINING THE RISKS AND BENEFITS OF TRANSFER, WILL CONTINUE TO MONITOR.
[2024-02-16 18:05] VITALS: BP 113/77; PULSE 78; RESP 16; TEMP 37.5; O2SAT 98
--- NOTE | 2024-02-16 18:18 | PC.NURSE ---
PT REPORTS SHE IS GOING TO SIGN OUT AMA AND GO TO [facility] TOMORROW. SIG OTHER TRANSPORT HOME. PT IS AWARE OF RISKS TO INCLUDE LOSING EYESIGHT, INFECTION TO HER SHUNT, UP TO . ERP IS AWARE.
[2024-02-16 18:38] VITALS: BP 103/76; PULSE 75; RESP 18; TEMP 37.5; O2SAT 100
--- NOTE | 2024-02-18 15:47 | PC.NURSE ---
Blood culture x 2: Preliminary - no growth to date
== END 2024-02-16 18:38 | disposition left against medical advice (07) ==
PROVIDERS: Emergency Provider Internal Medicine Critical Care Medicine
DX: H05.012 Cellulitis of left orbit (principal); L03.211 Cellulitis of face
CPT/HCPCS: 36415; 70450; 70481; 80053; 81025; 83605; 85025; 87040; 87641; 96365; 96367; 99284; J0696; J3370; Q9967

== ENCOUNTER 2024-06-23 22:46 | Emergency (ER) | payer OTHER, SELFPAY ==
[2024-06-23 22:47] VITALS: BP 109/73; PULSE 114; RESP 20; TEMP 37.3; O2SAT 100
--- NOTE | 2024-06-23 23:00 | ED.URI ---
HPI - URI/Sore Throat General Chief Complaint: Upper Respiratory Infection Stated Complaint: not feeling well Time Seen by Provider: 06/23/24 22:59 Source: patient Mode of arrival: ambulatory Limitations: no limitations History of Present Illness HPI Narrative: patient is a 28-year-old female with cough and congestion and sore throat for the past 1 day. This started last night. She is here with also a concern that her friend was recently intubated with pneumonia. MD elicited complaint: cough, sore throat and nasal congestion Pertinent past history: other ( None) Onset (ago): day(s) ( 1) Consistency: constant Severity: mild Pain scale (0-10): 2 Description of mucous: clear Able to tolerate fluids by mouth: Yes Exacerbating factors: nothing Relieving factors: nothing Context: sick contacts Associated symptoms: nasal congestion, sore throat and cough Treatments prior to arrival: none Related Data Allergies Allergy/AdvReac Type Severity Reaction Status Date / Time meropenem Allergy Intermediate hives Verified 03/03/24 10:32 oxacillin Allergy Unknown Verified 03/03/24 10:32 mirapenum Allergy Unknown Uncoded 03/03/24 10:32 Review of Systems Review of Systems: All systems reviewed & are unremarkable except as noted in HPI and below Constitutional: Constitutional: Reports no additional constitutional complaints Eyes: Eyes: Reports no additional eye complaints ENT: Reports system reviewed and no additional complaints, except as documented Cardiovascular: Cardiovascular: Reports no additional cardiovascular complaints Respiratory: Respiratory: Reports no additional respiratory complaints Gastrointestinal: Gastrointestinal: Reports no additional gastrointestinal complaints Genitourinary: Genitourinary: Reports no additional female genitourinary complaints Musculoskeletal: Musculoskeletal: Reports no additional musculoskeletal complaints Integumentary/Breasts: Skin/Breast: Reports system reviewed and no additional complaints, except as docu Neurologic: Reports system reviewed and no additional complaints, except as documented Psychiatric: Psychiatric: Reports no additional psychiatric complaints Endocrine: Endocrine: Reports no additional endocrine complaints Hematologic/Lymphatic: Hematologic/Lymphatic: Reports no additional hematologic/lymphatic complaints Allergic/Immunologic: Allergic/Immunologic: Reports no additional allergic/immunologic complaints PMFSH Past Medical History Medical History Seizure disorder Right axillary hidradenitis Healing wound Surgical History Surgical History [employer] 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 (ventriculoperitoneal) shunt status Family History Family History Father COPD (chronic obstructive pulmonary disease) Bipolar disorder Hypertension Mother Diabetes mellitus Grandparent History of quadruple bypass, Onset Age: 30 Grandparent Kidney disease Social History Social History Social History: reports smoked cigarettes since 16 years old - 1 pack lasts 1 week Smoking status: Current every day smoker Tobacco type: cigarettes Alcohol intake: never Substance use: current Substance use type: amphetamines and methamphetamine Last use: last use 3-4 days ago Do You Feel Safe in your Home?: Yes Lack of Transportation: YES Lack of Food: Never True Current Housing: I Have Housing Concerned About Future Housing: No Difficulty Paying Gas/Electric Bills: No Difficulty Paying for Meds: No Currently Unemployed: No Exam Const: General: ill appearing Nutritional Appearance: well nourished Orientation/consciousness: patient oriented x3 Limitations: no limitations HENMT: Head: normal to inspection Ears: external ears normal Face/Nose/Sinus: Normal external nose present Eyes: Conjunctivae: conjunctivae normal Pupils: Equal, round and reactive pupils present EOM: EOMs intact bilaterally Neck: Neck: normal visual inspection Chest: Chest palpation & inspection: normal inspection of the chest Resp: Effort & Inspection: normal respiratory effort and not labored Auscultation: clear to auscultation bilaterally and no crackles Cardio: Rate: regular rate Rhythm: regular rhythm Heart sounds: no murmurs GI: Inspection: non-distended GI Palp: Yes Soft to palpation and No Tenderness to palpation present (GI) Auscultation: normal bowel sounds : General: Yes bladder normal to palpation Back/Spine/Pelvis: Back: no CVA tenderness Skin: General skin exam: normal color Rashes: no rashes Wounds: no wounds Neuro: General: patient oriented x3 Cranial nerves: Yes Nystagmus not present Speech: normal speech Gait exam (Neuro): Normal gait present Extrem: General: normal to inspection Psych: Mental Status: mental status grossly normal Affect: normal affect Attitude: cooperative Course Vital Signs Vital signs: Vital Signs Temperature 37.3 C 06/23/24 22:47 Pulse Rate 114 H 06/23/24 22:47 Respiratory Rate 20 06/23/24 22:47 Blood Pressure 109/73 06/23/24 22:47 Pulse Oximetry 100 06/23/24 22:47 Oxygen Delivery Room Air 06/23/24 22:47 Temperature 37.3 C 06/23/24 22:47 Pulse Rate 114 H 06/23/24 22:47 Respiratory Rate 20 06/23/24 22:47 Blood Pressure 109/73 06/23/24 22:47 Pulse Oximetry 100 06/23/24 22:47 Oxygen Delivery Room Air 06/23/24 22:47 MDM - URI/Sore Throat MDM Narrative Medical decision making narrative: patient is a 28-year-old female with cough and congestion with sore throat for the past day we will do a COVID panel test. Lab Data Attestation: I reviewed the patient's lab results. Labs: Lab Results 06/23/24 Range/Units 22:57 Influenza A (RT-PCR) Positive A (Negative) Influenza B (RT-PCR) Negative (Negative) RSV (RT-PCR) Negative (Negative) SARS-CoV-2 RNA (RT-PCR) Negative (Negative) Group A Strep (PCR) Not detected (Negative) Discharge Plan Discharge Clinical Impression: Influenza A Patient Disposition: Home, Self-Care Condition: Stable Instructions: Influenza (ED) Patient Language: Japanese Prescriptions: New oseltamivir [Tamiflu] 75 mg capsule 75 mg PO BID 5 Days Qty: 10 0RF Follow-up/Referrals: Patrick Ricks DO [Primary Care Provider] - Time of Disposition: 00:11
--- NOTE | 2024-06-23 23:02 | PC.NURSE ---
covid swab sent to lab
[2024-06-23 23:27] LABS: Strep Group A RT-PCR NOT DETECTED (Negative)
[2024-06-23 23:33] LABS: Influenza A QL RT-PCR Positive (Negative); Influenza B QL RT-PCR Negative (Negative); RSV RNA, RT-PCR Negative (Negative); SARS-CoV-2 RNA PCR Negative (Negative)
[2024-06-24] MEDS: OSELTAMIVIR PHOSPHATE 75 MG CAPSULE PO (00:25)
[2024-06-24 00:45] VITALS: BP 110/75; PULSE 99; RESP 19; TEMP 37.1; O2SAT 100
== END 2024-06-24 00:45 | disposition home or self-care (01) ==
PROVIDERS: Emergency Provider Emergency Medicine; PCP Family Medicine
DX: J10.1 Influenza due to other identified influenza virus with other respiratory manifestations (principal); F17.210 Nicotine dependence, cigarettes, uncomplicated; Z20.822 Contact with and (suspected) exposure to COVID-19
CPT/HCPCS: 71046; 87637; 87651; 99283; A9270

== ENCOUNTER 2024-06-24 10:36 | Emergency (ER) | payer SELFPAY ==
[2024-06-24 10:36] VITALS: BP 98/60; PULSE 96; RESP 16; TEMP 37; O2SAT 96
[2024-06-24 11:50] VITALS: TEMP 37.9
== END 2024-06-24 13:34 | disposition left against medical advice (07) ==
LOC: ANHED 12:20
PROVIDERS: PCP Family Medicine
DX: J10.1 Influenza due to other identified influenza virus with other respiratory manifestations (principal)
CPT/HCPCS: 99199

== ENCOUNTER 2024-06-24 12:45 | Emergency (ER) | payer OTHER, SELFPAY ==
[2024-06-24 12:48] VITALS: BP 109/72; PULSE 105; RESP 18; TEMP 37; O2SAT 100
--- NOTE | 2024-06-24 13:39 | ED.URI ---
HPI - URI/Sore Throat General Chief Complaint: Upper Respiratory Infection Stated Complaint: Flu A Time Seen by Provider: 06/24/24 13:13 Source: patient Mode of arrival: ambulatory Limitations: no limitations History of Present Illness HPI Narrative: 28-year-old female, smoker with a history of multiple brain surgeries, status post RFP WRITER shunt, history of shunt infection, left upper extremity weakness, presented to the ED yesterday with upper respiratory tract infection secondary to influenza A. she presents today with -- body ache -- nasal congestion patient left AMA before I could see a Related Data Allergies Allergy/AdvReac Type Severity Reaction Status Date / Time meropenem Allergy Intermediate hives Verified 06/24/24 12:56 oxacillin Allergy Unknown Verified 06/24/24 12:56 mirapenum Allergy Unknown Uncoded 06/24/24 12:56 PMFSH Past Medical History Medical History Seizure disorder Right axillary hidradenitis Healing wound Surgical History Surgical History RFP WRITER (ventriculoperitoneal) shunt status Family History Family History Father COPD (chronic obstructive pulmonary disease) Bipolar disorder Hypertension Mother Diabetes mellitus Grandparent History of quadruple bypass, Onset Age: 30 Grandparent Kidney disease Social History Social History Social History: reports smoked cigarettes since 16 years old - 1 pack lasts 1 week Smoking status: Current every day smoker Tobacco type: cigarettes Alcohol intake: never Substance use: current Substance use type: amphetamines and methamphetamine Last use: last use 3-4 days ago Do You Feel Safe in your Home?: Yes Lack of Transportation: YES Lack of Food: Never True Current Housing: I Have Housing Concerned About Future Housing: No Difficulty Paying Gas/Electric Bills: No Difficulty Paying for Meds: No Currently Unemployed: No Course Vital Signs Vital signs: Vital Signs Temperature 37.0 C 06/24/24 12:48 Pulse Rate 105 H 06/24/24 12:48 Respiratory Rate 18 06/24/24 12:48 Blood Pressure 109/72 06/24/24 12:48 Pulse Oximetry 100 03/01/25 12:48 Oxygen Delivery Room Air 06/24/24 12:48 Temperature 37.0 C 06/24/24 12:48 Pulse Rate 105 H 06/24/24 12:48 Respiratory Rate 18 06/24/24 12:48 Blood Pressure 109/72 06/24/24 12:48 Pulse Oximetry 100 06/24/24 12:48 Oxygen Delivery Room Air 06/24/24 12:48 Discharge Plan Discharge Clinical Impression: Influenza A Patient Disposition: Left Without Being Sn Triaged Patient Language: Japanese Prescriptions: No Action oseltamivir [Tamiflu] 75 mg capsule 75 mg PO BID 5 Days Qty: 10 0RF Follow-up/Referrals: Patrick Ricks DO [Primary Care Provider] - Time of Disposition: 13:47
--- NOTE | 2024-06-24 13:44 | PC.NURSE ---
Patient came out of room states she is leaving, Doctor spoke with patient told her he would be in her room in just a minute to see her but she decided to leave instead of waiting. Patient ambulatory to ER waiting room to wait for ride without any difficulty.
== END 2024-06-24 13:46 | disposition left against medical advice (07) ==
PROVIDERS: Emergency Provider Internal Medicine Critical Care Medicine; PCP Family Medicine
DX: J10.1 Influenza due to other identified influenza virus with other respiratory manifestations (principal); F17.210 Nicotine dependence, cigarettes, uncomplicated
CPT/HCPCS: 99199